=== PATIENT | female | born 2000 | race Caucasian/White ===

== ENCOUNTER 2023-09-18 09:44 | Emergency (ER) | payer OTHER, SELFPAY ==
[2023-09-18 09:58] VITALS: BP 148/99
[2023-09-18 10:33] VITALS: BP 156/90
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
[2023-09-18] MEDS: MOTRIN 400 MG PO (10:43)
== END 2023-09-18 11:17 | disposition home or self-care (01) ==
LOC: EMR 09:44
PROVIDERS: EMERGENCY PHYSICIAN Student in an Organized Health Care Education/Training Program; FAMILY PHYSICIAN Nurse Practitioner Adult Health
DX: S20.219A Contusion of unspecified front wall of thorax, initial encounter (principal); S60.221A Contusion of right hand, initial encounter; V43.52XA Car driver injured in collision with other type car in traffic accident, initial encounter; R03.0 Elevated blood-pressure reading, without diagnosis of hypertension
CPT/HCPCS: 99283; 71046